=== PATIENT | female | born 1970 | race Asian ===

== ENCOUNTER 2018-11-26 10:44 | Day surgery (SDC) | payer OTHER, SELFPAY ==
--- NOTE | 2018-11-26 | PATH_ITS ---
[facility] Accession Number: [id number] . 01 Material submitted: . gastrointestinal site - H.PYLORI . 01 Clinical history: . GASTRO-ESOPHAGEAL REFLUX DISEASE WITHOUT ESOPHAGITIS, DYSPHAGIA, UNSPECIFIED . 02 Diagnosis: Stomach, Biopsies: Antral mucosa with mild chronic gastritis. Negative for Helicobacter by immunohistochemistry. Negative for intestinal metaplasia. Negative for dysplasia and malignancy. MRV 11/28/2018 1324 Local . 02 Electronically signed: . Kelli Becerra MD, Pathologist NPI- [id number] . 01 Gross description: . H.PYLORI: Received in formalin are 2 fragment(s) of guy, soft tissue measuring 0.1 x 0.1 x 0.1 cm to 0.2 x 0.2 x 0.2 cm which is entirely submitted and submitted entirely in 1 cassette(s) /[facility] 11/26/2018 2233 Local . 02 Microscopic: . An immunohistochemical stain was performed to evaluate for Helicobacter organisms and is negative. The control stain showed appropriate reactivity. . * This test was developed and its performance characteristics determined by [facility]. It has not been cleared or approved by the U.S. Food and Drug Administration. The FDA has determined that such clearance or approval is not necessary. This test is used for clinical purposes. It should not be regarded as investigational or for research. . 02 Pathologist provided ICD-10: R13.10 . 02 CPT . 116784, L54128 Performed at: 01 [facility] [address] [address] [id number] MD Marco Antonio Pabon MD Phone: [phone] Performed at: [address] [place] [id number] [place], [place] [id number] MD Kelli Becerra MD Phone: [phone]
[2018-11-26 11:03] VITALS: BP 151/77; PULSE 55; RESP 19; TEMP 36.1; O2SAT 100; BMI 22.6
--- NOTE | 2018-11-26 11:21 | PM.HP.1 ---
History of Present Illness History of Present Illness Date Patient Seen: 11/26/18 Time Patient Seen: 11:22 Chief complaint: [id number] Narrative: Cervical dysphagia throat pain and abnormal barium swallow Patient History Social History household members: spouse Family & Social History Social History: household members spouse Meds Home Medications and Allergies Home Medications Medication Instructions Recorded Confirmed Type No Known Home Medications 11/26/18 11/26/18 History Allergies Allergy/AdvReac Type Severity Reaction Status Date / Time No Known Drug Allergies Allergy Verified 11/26/18 11:02 Exam Vital Signs (past 8 hours): - 11/26/18 11:03 Temperature 97.0 F L Pulse Rate 55 L Respiratory Rate 19 Blood Pressure 151/77 H Pulse Oximetry 100 Oxygen Delivery Method Room Air Narrative Exam Narrative: Oropharynx free of lesions Chest clear to auscultation percussion Cardiac exam reveals no S3 or murmur Assessment & Plan Assessment & Plan narrative: Throat pain and cervical dysphagia probably a globus ?want with marked GE reflux and barium swallow rule out on healed ulcerations. EGD to be performed. Risks, benefits, alternatives have been explained
--- NOTE | 2018-11-26 11:23 | PM.OP.ENDO ---
Operative Date/Time/Diagnoses Date of procedure: 11/26/18 Time of procedure: 11:23 Pre-op diagnosis: See indication and findings Procedure & Clinicians Study performed: EGD Same procedure as scheduled: Yes Indications: Cervical dysphagia throat pain and abnormal barium swallow Surgeon: Maggie Swann Procedure Notes Procedure in detail: After informed consent was obtained the patient was placed in left lateral decubitus position. The video upper scope was placed into the oropharynx with the patient was swallowed in the esophagus. The esophagus stomach and duodenum were carefully examined. On withdrawal, retroflexed view the GE junction was performed. The scope was removed. The patient tolerated procedure well. Blood loss none Complications none Sedation Total sedation time 10 minutes Fentanyl 100 mg Versed 5 mg IV titration Findings 1. Completely normal esophagus proximally. 2. Fairly wide open lower esophageal sphincter with a slight rim of a Schatzki's ring that is wide open. 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 Streaky gastric erythema in the antrum and distal body with a few hematin flex. Biopsies taken to rule out Helicobacter 4. Normal duodenal bulb and sweep Patient will stay on current medications to we get her biopsies back and discussed by telephone. All
[2018-11-26] MEDS: SODIUM CHLORIDE 0.9% 1,000 ML 100 ML IV (11:30)
[2018-11-26] MEDS: fentaNYL 250 MCG/5 ML INJ IV (12:11)
[2018-11-26] MEDS: MIDAZOLAM 5 MG/5 ML VIAL IV (12:11)
[2018-11-26 12:12] VITALS: BP 97/62; PULSE 64; RESP 13; TEMP 36.3; O2SAT 97
[2018-11-26 12:17] VITALS: BP 95/58; PULSE 56; RESP 14; O2SAT 97
[2018-11-26 12:22] VITALS: BP 110/68; PULSE 58; RESP 15; O2SAT 99
[2018-11-26 12:30] VITALS: BP 136/71; PULSE 60; RESP 16; O2SAT 99
[2018-11-26 13:50] VITALS: BP 131/79; PULSE 55; RESP 15; TEMP 36.8; O2SAT 97
[2018-11-26] MEDS: ONDANSETRON 4 MG ODT SL ×2 (14:08)
--- NOTE | 2018-11-26 14:10 | SUR.PHASEII ---
Patient up dressed post endoscopy with emesis x2. vomited x2. Verbal report to Dr. Alvarez. order recieved for Ondansetron 4m ODT. provided as orders. Report to discharging nurse.
== END 2018-11-26 14:14 | disposition home or self-care (01) ==
LOC: ENDO 10:47
PROVIDERS: Visit Provider Internal Medicine Gastroenterology
PROC: 0DJ08ZZ Inspection of Upper Intestinal Tract, Via Natural or Artificial Opening Endoscopic (ICD-10-PCS; CPT 43235; principal; 2018-11-26 11:30)
DX: K21.9 Gastro-esophageal reflux disease without esophagitis (principal); K22.2 Esophageal obstruction
CPT/HCPCS: 43239; J2250; J3010

== ENCOUNTER → 2019-03-23 13:24 | Outpatient (CLI) | payer OTHER, SELFPAY ==
--- NOTE | 2019-03-23 | DI.MG.S_ITS ---
BILATERAL DIGITAL SCREENING MAMMOGRAM 3D/2D WITH CAD: 03/23/2019 CLINICAL: Routine screening. Comparison is made to exams dated: 03/29/2016 mammogram and 04/23/2012 mammogram - [facility]. The tissue of both breasts is heterogeneously dense. This may lower the sensitivity of mammography. Current study was also evaluated with a Computer Aided Detection (CAD) system. No significant masses, calcifications, or other findings are seen in either breast. There has been no significant interval change. IMPRESSION: NEGATIVE There is no mammographic evidence of malignancy. A 1 year screening mammogram is recommended. This exam was interpreted at Station ID: [id number]. NOTE: For mammograms, a report in lay terms will be sent to the patient. Approximately 15% of breast malignancies will not be visualized mammographically. In the management of a palpable breast mass, a negative mammogram must not discourage biopsy of a clinically suspicious lesion. Electronically Signed By: Anitra hernandez/johan:03/23/2019 15:09:32 letter sent: Normal Exam ACR BI-RADS Category 1: Negative 3341F
== END ==
PROVIDERS: Visit Provider Family Medicine
DX: Z12.31 Encounter for screening mammogram for malignant neoplasm of breast (principal)
CPT/HCPCS: 77063; 77067

== ENCOUNTER → 2021-03-24 11:07 | Outpatient (CLI) | payer OTHER, SELFPAY ==
--- NOTE | 2021-03-24 | DI.MG.S_ITS ---
BILATERAL DIGITAL SCREENING MAMMOGRAM 3D/2D WITH CAD: 03/24/2021 CLINICAL: Routine screening. Comparison is made to exams dated: 03/23/2019 mammogram - [facility], 03/29/2016 mammogram, and 04/23/2012 mammogram - [facility] [place]. The tissue of both breasts is heterogeneously dense. This may lower the sensitivity of mammography. Current study was also evaluated with a Computer Aided Detection (CAD) system. There are benign calcifications in both breasts. No significant masses, calcifications, or other findings are seen in either breast. There has been no significant interval change. IMPRESSION: BENIGN There is no mammographic evidence of malignancy. A 1 year screening mammogram is recommended. This exam was interpreted at Station ID: [id number]. NOTE: For mammograms, a report in lay terms will be sent to the patient. Approximately 15% of breast malignancies will not be visualized mammographically. In the management of a palpable breast mass, a negative mammogram must not discourage biopsy of a clinically suspicious lesion. Electronically Signed By: Obinna Becker acr/penrad:03/24/2021 13:54:55 letter sent: Normal Exam ACR BI-RADS Category 2: Benign Finding(s) 3342F
== END ==
PROVIDERS: PCP Family Medicine; Referring Provider Family Medicine; Visit Provider Family Medicine
DX: Z12.31 Encounter for screening mammogram for malignant neoplasm of breast (principal)
CPT/HCPCS: 77063; 77067

== ENCOUNTER → 2024-04-21 11:43 | Outpatient (CLI) | payer OTHER, SELFPAY ==
--- NOTE | 2024-04-21 11:44 | DI.US.S_ITS ---
PROCEDURE: US PELVIC COMPLETE INDICATIONS: LEFT PELVIC PAIN TECHNIQUE: Real-time scanning was performed of the pelvic organs, with image documentation. Additional endovaginal scanning was necessary due to incomplete visualization of the adnexal and endometrial structures by transabdominal scanning. COMPARISON: None. FINDINGS: Uterus: Uterus is anteverted and normal in size at 4.4 x 3.1 x 1.7 cm. The myometrium is mildly heterogeneous. The endometrium measures 1.3 mm combined thickness. Trace fluid within the cervical canal. Ovaries: The right ovary measures 2.2 x 1.2 x 0.8 cm, with a calculated ovarian volume of 1.1 cc. The right ovary is grossly normal in appearance. The left ovary is not seen. Other: No pathologic free abdominal or pelvic fluid. Large amount of bowel within the left lower quadrant without peristalsis at the time of imaging. IMPRESSION: Normal appearance of the uterus and right ovary. The left ovary is not seen. Large amount of bowel within the left lower quadrant without peristalsis at the time of imaging, nonspecific. We strive to produce accurate, complete, and clear reports of imaging services. To assist us in improving patient care, this report was composed using standard report templates and voice recognition software. Therefore, it may contain abnormal punctuation, insertions and/or omissions. Occasional wrong-word or sound-alike substitutions may occur. Though we review the report and make efforts to correct it, we do recommend that the report be read carefully in proper context to recognize any text inaccuracies. Dictated by: Eren Thompson M.D. on 04/21/2024 at 14:13 Approved by: Eren Thompson M.D. on 04/21/2024 at 14:17
== END ==
LOC: US 11:43
PROVIDERS: PCP Family Medicine; Referring Provider Family Medicine; Visit Provider Family Medicine
DX: R10.2 Pelvic and perineal pain (principal)
CPT/HCPCS: 76830; 76856

== ENCOUNTER → 2024-05-08 16:59 | Outpatient (CLI) | payer OTHER, SELFPAY ==
--- NOTE | 2024-05-08 17:01 | DI.RAD.S_ITS ---
PROCEDURE: XR KNEE RT 3V INDICATIONS: Right knee strain TECHNIQUE: 3 views of the knee were acquired. COMPARISON: None. FINDINGS: Bones: No fractures or dislocations. No suspicious bony lesions. Soft tissues: No joint effusion. No suspicious soft tissue calcifications. IMPRESSION: No acute bony abnormality or significant effusion. Dictated by: Osiel Alejandro M.D. on 05/09/2024 at 6:48 Approved by: Osiel Alejandro M.D. on 05/09/2024 at 6:48
== END ==
LOC: RAD 17:00
PROVIDERS: PCP Family Medicine; Referring Provider Nurse Practitioner Family; Visit Provider Nurse Practitioner Family
DX: S86.911A Strain of unspecified muscle(s) and tendon(s) at lower leg level, right leg, initial encounter (principal); X58.XXXA Exposure to other specified factors, initial encounter
CPT/HCPCS: 73562

== ENCOUNTER → 2024-05-29 12:57 | Outpatient (CLI) | payer OTHER, SELFPAY ==
--- NOTE | 2024-05-29 12:58 | DI.MG.S_ITS ---
MM diagnostic mammo BI: 05/29/2024. BI-RADS: 1 CLINICAL: 54-year old female for bilateral diagnostic mammogram. The patient reports left breast pain. Tyrer-Cuzick lifetime risk of 10.5%. No personal or first-degree family history of breast cancer. The patient reports pain (3 months) in the left breast. PRIOR EXAMS 08/20/2023, 06/07/2022, 03/24/2021, 03/23/2019. MAMMOGRAPHY TECHNIQUE: 2D and 3D (tomosynthesis) digital mammographic views obtained, with additional images as needed for full coverage. Current study was also evaluated with a Computer Aided Detection (CAD) system. DENSITY C. The breasts are heterogeneously dense, which may obscure small masses. MAMMOGRAPHY FINDINGS Bilateral: There is no suspicious mammographic finding to account for clinical concern of pain/tenderness. No suspicious mass, asymmetry, microcalcification, or other abnormality seen. IMPRESSION: * No evidence of malignancy. RECOMMENDATIONS * The cause of breast pain is not seen; the need to further evaluate should be based on clinical assessment. Bilateral * Annual screening mammography. OVERALL ASSESSMENT CATEGORY BI-RADS-1: Negative. [employer] recommends annual screening mammography beginning at age 40 for women with average risk of breast cancer. ELECTRONICALLY SIGNED: Donnell Palomo M.D. on 05/29/2024 at 02:35:55 PM PT Interpreting Station ID: [id number]
== END ==
LOC: MAMMO 12:58
PROVIDERS: PCP Family Medicine; Referring Provider Family Medicine; Visit Provider Family Medicine
DX: N64.4 Mastodynia (principal); R92.333 Mammographic heterogeneous density, bilateral breasts
CPT/HCPCS: 77066; G0279